=== PATIENT | male | born 1965 | race Hispanic/Latino ===

== ENCOUNTER 2025-02-20 16:43 | Observation (INO) | payer SELFPAY ==
[2025-02-20 18:34] LABS: #Basophils 0.06 10x3/uL (0.0-0.2); #Eosinophils 0.15 10x3/uL (0.0-0.7); #Monocytes 0.79 10x3/uL (0.11-0.59); #Neutrophils 5.13 10x3/uL (1.40-6.50); %Basophils 0.7 % (0.0-1.0); %Eosinophils 1.7 % (0.0-10.0); %Lymphocytes 29.7 % (21.0-51.0); %Monocytes 9.0 % (0.0-10.0); %Neutrophils 58.4 % (42.0-75.0); Hematocrit 45.2 % (42.0-52.0); Hemoglobin 15.0 g/dL (14.0-18.0); Mean Corpuscular Hemoglobin 29.0 pg (27.0-31.0); Mean Corpuscular Volume 87.3 fL (78.0-98.0); Platelet Count 249 10x3/uL (130-400); Red Blood Cell (RBC) Count 5.18 mill/uL (4.70-6.10); White Blood Cell (WBC) Count 8.78 10x3/uL (4.8-10.8)
[2025-02-20] MEDS ORDERED: Cefepime 2 GM VIAL ONE (18:39)
[2025-02-20 18:51] LABS: ALT (SGPT) 26 U/L (Less than 45); AST (SGOT) 21 U/L (11-34); Albumin 3.7 g/dL (3.1-4.5); Alkaline Phosphatase 52 U/L (40-110); Anion Gap 14 mmol/L (10-20); BUN (Urea Nitrogen) 21 mg/dL (8.4-25.7); Bilirubin, Total 0.4 mg/dL (0.3-1.2); Calc. Creatinine Clearance 0 mL/min (70-130); Calcium 9.9 mg/dL (7.8-10.44); Carbon Dioxide 24 mmol/L (23-31); Chloride 103 mmol/L (98-107); Globulin 3.1 g/dL (2.4-3.5); Glucose 144 mg/dL (80-115); Potassium 3.8 mmol/L (3.5-5.1); Sodium 137 mmol/L (136-145)
[2025-02-20] MEDS ORDERED: Calcium Carbonate 500 MG ChewTAB PO PRN (21:18)
[2025-02-20] MEDS ORDERED: Acetaminophen 325 MG TAB PO PRN (21:18)
[2025-02-20] MEDS ORDERED: Ondansetron PF 4 MG/2 ML Vial IVP PRN (21:18)
[2025-02-20] MEDS ORDERED: Dextrose 50% Abboject 50 ML SYRINGE SLOW IVP PRN (21:20)
[2025-02-20] MEDS ORDERED: Glucagon 1 MG/ML KIT IM PRN (21:20)
[2025-02-20] MEDS ORDERED: Electrolyte Replacement Protocol 1 EACH FS SCH (21:30)
[2025-02-20] MEDS ORDERED: PHOS-NAK 1 PKT PACK PO PRN (21:30)
[2025-02-20] MEDS ORDERED: Magnesium 2 GM/50 ML(in water) 2 GM in Premix 1 BAG IVPB PRN (21:30)
[2025-02-20] MEDS ORDERED: Potassium Chloride 20 MEQ in Premix 1 BAG IVPB PRN (21:30)
[2025-02-20] MEDS: VANCOMYCIN 2 GRAM/400 ML Premix BAG IVPB SCH (22:55)
[2025-02-20 22:56] VITALS: BMI 27.3
[2025-02-21 05:25] LABS: #Basophils 0.05 10x3/uL (0.0-0.2); #Eosinophils 0.23 10x3/uL (0.0-0.7); #Monocytes 0.90 10x3/uL (0.11-0.59); #Neutrophils 4.71 10x3/uL (1.40-6.50); %Basophils 0.6 % (0.0-1.0); %Eosinophils 2.8 % (0.0-10.0); %Lymphocytes 27.5 % (21.0-51.0); %Monocytes 11.0 % (0.0-10.0); %Neutrophils 57.6 % (42.0-75.0); Hematocrit 39.1 % (42.0-52.0); Hemoglobin 12.9 g/dL (14.0-18.0); Mean Corpuscular Hemoglobin 29.0 pg (27.0-31.0); Mean Corpuscular Volume 87.9 fL (78.0-98.0); Platelet Count 228 10x3/uL (130-400); Red Blood Cell (RBC) Count 4.45 mill/uL (4.70-6.10); White Blood Cell (WBC) Count 8.18 10x3/uL (4.8-10.8)
[2025-02-21] MEDS: NIFEdipine XL 30 MG ER.TAB PO SCH (05:46)
[2025-02-21 05:47] LABS: ALT (SGPT) 21 U/L (Less than 45); AST (SGOT) 20 U/L (11-34); Albumin 3.1 g/dL (3.1-4.5); Alkaline Phosphatase 45 U/L (40-110); Anion Gap 11 mmol/L (10-20); BUN (Urea Nitrogen) 20 mg/dL (8.4-25.7); Bilirubin, Total 0.4 mg/dL (0.3-1.2); Calc. Creatinine Clearance 91 mL/min (70-130); Calcium 9.0 mg/dL (7.8-10.44); Carbon Dioxide 25 mmol/L (23-31); Cardiac Risk 5.1 (Less than 4.5); Chloride 107 mmol/L (98-107); Cholesterol 183 mg/dl (< 200 Desired); Globulin 2.6 g/dL (2.4-3.5); Glucose 213 mg/dL (80-115); HDL Cholesterol 36 mg/dL (>60 Neg Risk); LDL Cholesterol, Calculated 115 mg/dL; Potassium 4.0 mmol/L (3.5-5.1); Sodium 139 mmol/L (136-145); Triglycerides 162 mg/dL (Less than 150)
[2025-02-21] MEDS: Aspirin 81 mg Enteric Coated Tablet PO SCH (08:46)
[2025-02-21] MEDS: Insulin Glargine 30 UNITS/0.3 ML VIAL SC SCH (08:46)
[2025-02-21] MEDS: metFORMIN 500 MG TAB PO SCH (08:46)
[2025-02-21] MEDS: Losartan 25 MG TAB PO SCH (08:47)
[2025-02-21] MEDS ORDERED: Insulin Glargine 30 UNITS/0.3 ML VIAL SC SCH ×2 (09:00)
[2025-02-21] MEDS: hydrALAZINE 20 MG/ML VIAL SLOW IVP SCH (13:14)
[2025-02-21 20:05] VITALS: TEMP 98
[2025-02-21 20:34] VITALS: BP 161/85
== END 2025-02-21 20:39 | disposition home or self-care (01) ==
LOC: ERS 16:43 → T4-A 21:18
PROVIDERS: ADMIT Student in an Organized Health Care Education/Training Program; ATTEND Student in an Organized Health Care Education/Training Program
DX: R53.1 Weakness (principal); E11.40 Type 2 diabetes mellitus with diabetic neuropathy, unspecified; I10 Essential (primary) hypertension; E11.65 Type 2 diabetes mellitus with hyperglycemia; Z79.84 Long term (current) use of oral hypoglycemic drugs; Z79.899 Other long term (current) drug therapy; W19.XXXA Unspecified fall, initial encounter
CPT/HCPCS: 36415; 36416; 71045; 72131; 72146; 72148; 72192; 80053; 80061; 83036; 83605; 84443; 84484; 85025; 86141; 87040; 93005; 96374; 96375; 97139; G0378; J0360; J0692; J1815; J3375